=== PATIENT | female | born 1980 | race Caucasian/White ===

== ENCOUNTER 2017-01-06 17:15 | Emergency (ER) | payer SELFPAY ==
[2017-01-06 17:21] VITALS: BP 153/85
--- NOTE | 2017-01-06 17:31 | ER Document Report ---
ED Medical Screen (RME) - General Stated Complaint: FALL/RIGHT ANKLE PAIN, SWELLING Notes: 36 yo female c/o right ankle pain. fell down steps 2/. + swelling to right lateral malleolus TRAVEL OUTSIDE OF THE [place] IN LAST 30 DAYS: No - Related Data Allergies/Adverse Reactions: No Known Allergies Allergy (Verified 01/06/17 17:28) Past Medical History Pulmonary Medical History: Reports: Hx Asthma - as a child Past Surgical History: Reports: Hx Section, Hx Tubal Ligation - Immunizations Hx Diphtheria, Pertussis, Tetanus Vaccination: No Physical Exam - Vital signs Vitals: Temp Pulse Resp BP Pulse Ox 98.4 F 91 19 153/85 H 96 01/06/17 17:20 01/06/17 17:20 01/06/17 17:20 01/06/17 17:20 01/06/17 17:20 Course - Vital Signs Vital signs: Temp Pulse Resp BP Pulse Ox 98.4 F 91 19 153/85 H 96 01/06/17 17:20 01/06/17 17:20 01/06/17 17:20 01/06/17 17:20 01/06/17 17:20
[2017-01-06] MEDS ORDERED: PROMETHAZINE HCL 25 MG TABLET PO ONE (19:10)
[2017-01-06] MEDS ORDERED: OXYCODONE-ACETAMINOPHEN 5-325 MG TABLET PO ONE (19:10)
--- NOTE | 2017-01-06 19:29 | ER Document Report ---
ED Extremity Problem, Lower - General Chief Complaint: Knee Pain Stated Complaint: FALL/RIGHT ANKLE PAIN, SWELLING Notes: Patient was coming down steps Wednesday and rolled her right ankle on the last step causing an inversion of the ankle, now with severe pain, swelling, and inability to bear weight. Is using a single crutch to help her ambulate. TRAVEL OUTSIDE OF THE [place] IN LAST 30 DAYS: No - Related Data Allergies/Adverse Reactions: No Known Allergies Allergy (Verified 01/06/17 17:28) Past Medical History - Social History Smoking Status: Never Smoker Chew tobacco use (# tins/day): No Frequency of alcohol use: None Drug Abuse: None Family History: Reviewed & Not Pertinent Patient has suicidal ideation: No Patient has homicidal ideation: No Pulmonary Medical History: Reports: Hx Asthma - as a child Past Surgical History: Reports: Hx Section, Hx Tubal Ligation - Immunizations Hx Diphtheria, Pertussis, Tetanus Vaccination: No Review of Systems - Review of Systems Constitutional: denies: Chills, Diaphoresis, Fever Cardiovascular: denies: Chest pain Gastrointestinal: denies: Abdominal pain Musculoskeletal: denies: Back pain Physical Exam - Vital signs Vitals: Temp Pulse Resp BP Pulse Ox 98.4 F 91 19 153/85 H 96 01/06/17 17:20 01/06/17 17:20 01/06/17 17:20 01/06/17 17:20 01/06/17 17:20 Interpretation: Normal, Hypertensive - Minimal - Notes Notes: PHYSICAL EXAMINATION: GENERAL: Well-appearing, in no acute distress. 142 kg HEAD: Atraumatic, normocephalic. NECK: Normal range of motion, supple. LUNGS: Breath sounds clear and equal bilaterally. HEART: Regular rate and rhythm without murmurs. ABDOMEN: Soft, nontender. No guarding or rebound. BACK: No tenderness throughout entire back. EXTREMITIES: Significant soft tissue swelling of the lateral aspect of the right foot and ankle. Significant swelling around the distal fibula. There is ecchymosis subcutaneously in the lateral heel. Tenderness down the Achilles tendon although I think it's intact to its insertion on the calcaneus. Good pulses in the foot. Good capillary refill in the toes. All other extremities with normal range of motion without pain. NEUROLOGICAL: Normal speech. Normal sensory, motor, and reflex exams. Awake, alert, and oriented x3. Cranial nerves normal. PSYCH: Normal mood, normal affect. SKIN: Warm, dry, no rashes. Course - Vital Signs Vital signs: Temp Pulse Resp BP Pulse Ox 98.4 F 91 19 153/85 H 96 01/06/17 17:20 01/06/17 17:20 01/06/17 17:20 01/06/17 17:20 01/06/17 17:20 - Diagnostic Test Radiology results interpreted by me: 01/06/17 20:09 X-ray of the right ankle is normal. No fractures and no dislocations. Procedures - Immobilization Right Posterior Ankle Immobilizer type: Crutches, Posterior ankle Performed by: PCT Post-Proc Neuro Vasc Exam: Normal Alignment checked and good: Yes Discharge - Discharge Clinical Impression: Sprain of right ankle Qualifiers: Encounter type: initial encounter Involved ligament of ankle: tibiofibular ligament Qualified Code(s): S93.431A - Sprain of tibiofibular ligament of right ankle, initial encounter Condition: Stable Disposition: HOME, SELF-CARE Additional Instructions: SPRAIN: Your injury is a sprain. A sprain results from stretching or tearing of the ligaments, usually from a twisting injury. The ligaments will require time and protection in order to heal properly. Many sprains are quite disabling and should be taken seriously. The usual initial treatment of sprains is cold packs, elevation, and rest of the injured area. Your physician has assessed the seriousness of your ligament injury, and has outlined a treatment plan. Understand that this treatment may change, depending on how you progress. If a re-examination was recommended, it is important that you follow up as instructed. Call the doctor any time if there is severe pain, numbness, or loss of function in the injured area. SPRAINED ANKLE: Your sprained ankle results from stretching or tearing of the ligaments which support the ankle. This usually results from twisting the foot inward and under. The ligaments will require time and protection in order to heal properly. Many ankle sprains are quite disabling, and should be taken seriously. The usual treatment for an ankle sprain is cold packs; protection with tape , splints, or wraps; elevation; and staying off the ankle for at least a day. As the ankle improves, you can walk IF it's not painful to bear weight. Sports are best postponed until healing is complete. More serious sprains usually require strengthening exercises after early healing. Your physician has assessed the seriousness of the ligament injury to your ankle. However, the treatment may change, depending on how your ankle progresses. If further exams were recommended, it is important that you follow through. Call the doctor if your foot becomes numb, painful, or severely swollen. SPLINT PRECAUTIONS: A splint has been placed. This will protect the area while healing begins. Your problem does NOT normally require a cast. It MUST, however, be held still! Keep the splint on ALL THE TIME until instructed to remove it by the doctor. As you begin to use the area, be careful. You shouldn't do anything which causes discomfort -- you may disturb the injury even with the splint in place. After the initial period of rest and elevation, if splint does not prevent pain when you move, come back. You may require placement of a different splint , or a cast. If there is unexpected severe pain, or numbness, discoloration, or swelling beyond the splint, you should return at once. If you feel that the splint has broken or become loose, come back. ICE & ELEVATION: Apply ice packs frequently against the painful area. Many different schedules are recommended, such as "20 minutes on, 20 minutes off" or "one hour ice, two hours rest." If you need to work, you may need to go longer between ice treatments. You should plan to have the area ice packed AT LEAST one- fourth of the time. The ice should be applied over the wrap, tape, or splint, or over a layer of cloth -- not directly against the skin. Some ice bags have a built-in cloth and can be put directly on the skin. Your injured part should be elevated as much as possible over the next 48 hours. Try to keep the injury above the level of the heart. Avoid use of the injured area. Elevation and rest will decrease the swelling. ORAL NARCOTIC MEDICATION: You have been given a prescription for pain control. This medication is a narcotic. It's best taken with food, as nausea can result if taken on an empty stomach. Don't operate machinery or drive within six hours of taking this medication. Do not combine this medicine with alcohol, or with any medication which can cause sedation (such as cold tablets or sleeping pills) unless you get permission from the physician. Narcotics tend to cause constipation. If possible, drink plenty of fluids and eat a diet high in fiber and fruits. Antinausea Medication You have been given a medication to suppress nausea and vomiting. This type of medication can be given as a shot, pill, or suppository. It will usually last for many hours. Pills and shots usually last six to eight hours, suppositories last about 12 hours. For the typical illness, only one or two doses of the medication may be necessary. Mild lightheadedness may occur. This type of medicine can cause drowsiness. Do not drive or operate dangerous machinery while under its influence. Do not mix with alcohol. See your doctor at once if you have muscle spasms or tightness, or uncontrollable motions (particularly of the neck, mouth, or jaw). Persistent vomiting or severe lightheadedness should also be evaluated by the physician. Use your own crutches to help ambulate and not bear weight on the injured right ankle. FOLLOW-UP CARE: If you have been referred to a physician for follow-up care, call the physician s office for an appointment as you were instructed or within the next two days. If you experience worsening or a significant change in your symptoms, notify the physician immediately or return to the Emergency Department at any time for re-evaluation. I am providing you with the contact information for Dr. Salazar and his associates. Call their office tomorrow morning and see if they can see you in the next couple of days to reevaluate your ankle and to share a long-term treatment plan for your injury. Prescriptions: Oxycodone HCl/Acetaminophen [Percocet 5-325 mg Tablet] 1 - 2 tab PO Q4H PRN #30 tablet PRN Reason: Promethazine HCl [Phenergan 25 mg Tablet] 1 - 2 tab PO Q6H PRN #15 tablet PRN Reason: Forms: Return to Work Referrals: BINH SALAZAR MD [ACTIVE STAFF] - Follow up tomorrow
== END 2017-01-06 19:47 | disposition home or self-care (01) ==
LOC: ER 17:15
PROC: 2W3QX1Z Immobilization of Right Lower Leg using Splint (ICD-10-PCS; principal; 2017-01-06)
DX: S93.431A Sprain of tibiofibular ligament of right ankle, initial encounter (principal); W10.9XXA Fall (on) (from) unspecified stairs and steps, initial encounter; Z98.51 Tubal ligation status
CPT/HCPCS: 99283

== ENCOUNTER 2020-05-19 14:35 | Emergency (ER) | payer BC ==
[2020-05-19] MEDS ORDERED: NORMAL SALINE 1000 ML 1,000 ML IV PRN (15:21)
--- NOTE | 2020-05-19 15:22 | ER Document Report ---
ED Medical Screen (RME) - General Chief Complaint: Abscess Stated Complaint: ABSCESS/BUTTOCKS Time Seen by Provider: 05/19/20 15:20 Mode of Arrival: Ambulatory Notes: This is a 39-year-old female presents emergency room today stating that she has an abscess to the right medial aspect of her buttock she has had it for about 4 to 5 days is very red very inflamed she is unable to sit very painful when she stands she has had nausea vomiting and a low-grade fever. TRAVEL OUTSIDE OF THE [place] IN LAST 30 DAYS: No - Related Data Allergies/Adverse Reactions: No Known Allergies Allergy (Verified 05/19/20 15:16) Past Medical History - Social History Frequency of alcohol use: None Drug Abuse: None Pulmonary Medical History: Reports: Hx Asthma - as a child Renal/ Medical History: Denies: Hx Peritoneal Dialysis Past Surgical History: Reports: Hx Section, Hx Tubal Ligation - Immunizations Hx Diphtheria, Pertussis, Tetanus Vaccination: No Physical Exam - Vital signs Vitals: Temp Pulse Resp BP Pulse Ox 99.8 F 108 H 18 134/87 H 98 05/19/20 15:02 05/19/20 15:02 05/19/20 15:02 05/19/20 15:02 05/19/20 15:02 Course - Vital Signs Vital signs: Temp Pulse Resp BP Pulse Ox 99.8 F 108 H 18 134/87 H 98 05/19/20 15:16 05/19/20 15:02 05/19/20 15:02 05/19/20 15:02 05/19/20 15:02
[2020-05-19 15:46] LABS: ABSOLUTE BASOPHILS # (AUTO) 0.1 10^3/uL (0.0-0.2); ABSOLUTE EOSINOPHILS # (AUTO) 0.1 10^3/uL (0.0-0.6); ABSOLUTE LYMPHOCYTES (AUTO) 1.5 10^3/uL (0.5-4.7); ABSOLUTE MONOCYTES (AUTO) 1.2 10^3/uL (0.1-1.4); ABSOLUTE NEUT (AUTO) 14.3 10^3/uL (1.7-8.2); BASOPHILS % (AUTO) 0.6 % (0-2); EOSINOPHILS % (AUTO) 0.7 % (0-6); HEMOGLOBIN 14.3 g/dL (12.0-15.5); LYMPHOCYTES % (AUTO) 8.8 % (13-45); MEAN CORPUSCULAR HEMOGLOBIN 30.6 pg (27.0-33.4); MEAN CORPUSCULAR VOLUME 90 fl (80-97); MONOCYTES % (AUTO) 7.1 % (3-13); PLATELET COUNT 313 10^3/uL (150-450); RED BLOOD COUNT 4.66 10^6/uL (3.72-5.28); RED CELL DISTRIBUTION WIDTH 13.8 % (11.5-14.0); SEGMENTED NEUTROPHILS % (AUTO) 82.8 % (42-78); TOTAL CELLS COUNTED % (AUTO) 100 %; WHITE BLOOD COUNT 17.2 10^3/uL (4.0-10.5)
[2020-05-19 16:05] LABS: ALBUMIN 4.5 g/dL (3.5-5.0); ALKALINE PHOSPHATASE 97 U/L (38-126); ANION GAP 9 (5-19); ASPARTATE AMINO TRANSFERASE 28 U/L (14-36); BILIRUBIN,TOTAL 0.8 mg/dL (0.2-1.3); BLOOD UREA NITROGEN 9 mg/dL (7-20); CALCIUM 9.6 mg/dL (8.4-10.2); CARBON DIOXIDE 25 mmol/L (22-30); CHLORIDE 102 mmol/L (98-107); GLUCOSE 116 mg/dL (75-110); POTASSIUM 4.4 mmol/L (3.6-5.0); TOTAL PROTEIN 8.1 g/dL (6.3-8.2)
[2020-05-19] MEDS ORDERED: ONDANSETRON 4 MG TAB.RAPDIS PO ONE (16:12)
[2020-05-19] MEDS ORDERED: CEFTRIAXONE INJ 1000 MG VIAL IM ONE (16:12)
[2020-05-19] MEDS ORDERED: LIDOCAINE 1% INJ-PF (10 MG/ML) 30 ML SDV NEB ONE (16:12)
[2020-05-19] MEDS ORDERED: HYDROCODONE/ACETAMINOPHEN 10-325 MG TABLET PO ONE (16:12)
[2020-05-19] MEDS ORDERED: SULFAMETHOXAZOLE/TRIMETHOPRIM 800-160 MG TABLET PO ONE (16:12)
--- NOTE | 2020-05-19 16:18 | ER Document Report ---
ED General - General Chief Complaint: Abscess Stated Complaint: ABSCESS/BUTTOCKS Time Seen by Provider: 05/19/20 15:20 Mode of Arrival: Ambulatory Notes: Patient is a 39-year-old white female with no significant past medical history presents the emergency department chief complaint of red swollen tender area to the right buttock that began about 4 days ago. She states it started as a small pimple-like area and has gradually worsened. Yesterday she tried to "squeeze and poke it". She states after that the pain worsened. She states there is an area of redness around it that has been expanding. She denies any drainage from the wound except a little bit of blood after poking and squeezing. She denies prodding it with any instrumentation or device. Denies any fever, nausea, vomiting, diarrhea, chills or night sweats. States that she has had these in the past with a normally resolve on their own without any intervention or normally much smaller. TRAVEL OUTSIDE OF THE [place] IN LAST 30 DAYS: No - Related Data Allergies/Adverse Reactions: No Known Allergies Allergy (Verified 05/19/20 15:16) Past Medical History - Social History Smoking Status: Current Every Day Smoker Frequency of alcohol use: None Drug Abuse: None Family History: Reviewed & Not Pertinent Patient has homicidal ideation: No Pulmonary Medical History: Reports: Hx Asthma - as a child Renal/ Medical History: Denies: Hx Peritoneal Dialysis Past Surgical History: Reports: Hx Section, Hx Tubal Ligation - Immunizations Hx Diphtheria, Pertussis, Tetanus Vaccination: No Review of Systems - Review of Systems Constitutional: denies: Fever EENT: denies: Throat pain Cardiovascular: denies: Chest pain Respiratory: denies: Short of breath Gastrointestinal: denies: Abdominal pain Genitourinary: denies: Dysuria Female Genitourinary: denies: Irregular period Musculoskeletal: denies: Back pain Skin: Change in color Hematologic/Lymphatic: denies: Easy bleeding Neurological/Psychological: denies: Headaches Physical Exam - Vital signs Vitals: Temp Pulse Resp BP Pulse Ox 99.8 F 108 H 18 134/87 H 98 05/19/20 15:02 05/19/20 15:02 05/19/20 15:02 05/19/20 15:02 05/19/20 15:02 - General General appearance: Appears well, Alert In distress: None - Respiratory Respiratory status: No respiratory distress Chest status: Nontender Breath sounds: Normal Chest palpation: Normal - Cardiovascular Rhythm: Regular Heart sounds: Normal auscultation - Neurological Neuro grossly intact: Yes Cognition: Normal Orientation: AAOx4 - Psychological Associated symptoms: Normal affect, Normal mood - Skin Skin Color: Other - Cellulitis approximately 7 cm in diameter to the right buttock posteriorly, centrally located. Not involving the buttock cleft or not in the region of or involving any kimberli-anal or perirectal regions. Overlying area of induration approximately 3-1/2 cm in diameter. There is no fluctuance appreciated. No drainage. There is no proximal streaking. Area is tender to palpation. Chaperoned by female nurse. Course - Re-evaluation Re-evalutation: 05/19/20 16:15 Bedside ultrasound utilized showing cobblestoning of the area, consistent with cellulitis without evidence of pocket of drainable fluid. No evidence of abscess formation. Patient given a shot of Rocephin and oral Bactrim here. Given [place] for pain and Zofran prophylactically for nausea. She will be sent home on Bactrim, [place] and Zofran as needed. Counseled her regarding sitz baths. Discussed the importance of outpatient follow-up and 2 to 3 days for wound recheck and reevaluation. Advised that she return here or any ER immediately with any new, persistent or worsening symptoms. She verbalized understood and agreed. - Vital Signs Vital signs: Temp Pulse Resp BP Pulse Ox 99.8 F 108 H 18 134/87 H 98 05/19/20 15:16 05/19/20 15:02 05/19/20 15:02 05/19/20 15:02 05/19/20 15:02 - Laboratory Result Diagrams: 05/19/20 15:31 05/19/20 15:31 Laboratory results interpreted by me: 05/19/20 05/19/20 15:31 15:31 WBC 17.2 H Lymph % (Auto) 8.8 L Absolute Neuts (auto) 14.3 H Seg Neutrophils % 82.8 H Sodium 135.6 L Glucose 116 H Discharge - Discharge Clinical Impression: Cellulitis Qualifiers: Site of cellulitis: buttock Qualified Code(s): L03.317 - Cellulitis of buttock Condition: Stable Disposition: HOME, SELF-CARE Instructions: MRSA Cellulitis ([facility]), Trimethoprim-Sulfa ([facility]) Additional Instructions: Follow-up with your regular doctor in 2 to 3 days for reevaluation. Return here or any ER immediately with any new, persistent or worsening symptoms. Prescriptions: Sulfamethoxazole/Trimethoprim [Bactrim Ds Tablet] 1 each PO BID #19 tablet Hydrocodone/Acetaminophen [[place] 10-325 Tablet] 1 each PO Q6 PRN #12 tablet PRN Reason: Ondansetron [Zofran Odt 4 mg Tablet] 4 mg PO Q8 PRN #20 tab.rapdis PRN Reason:
[2020-05-19 17:32] VITALS: BP 133/85
== END 2020-05-19 17:31 | disposition home or self-care (01) ==
LOC: ER 14:35
DX: L03.317 Cellulitis of buttock (principal); F17.200 Nicotine dependence, unspecified, uncomplicated; J45.909 Unspecified asthma, uncomplicated
CPT/HCPCS: 99283; 96372; 36415; 87040; 85025; 80053; S0119; J3490; J0696

== ENCOUNTER 2020-05-21 15:17 | Emergency (ER) | payer BC ==
[2020-05-21 15:38] VITALS: BP 147/74
[2020-05-21] MEDS ORDERED: HYDROCODONE/ACETAMINOPHEN 5-325 MG TABLET PO ONE (15:54)
--- NOTE | 2020-05-21 15:59 | ER Document Report ---
ED Medical Screen (RME) - General Stated Complaint: ABSCESS RECHECK TRAVEL OUTSIDE OF THE [place] IN LAST 30 DAYS: No - HPI Notes: 05/21/20 15:55 39-year-old female presents emergency room for evaluation of an abscess to her right buttocks. Patient was seen in the emergency room 2 days ago for the same complaint, there was no fluid collection seen by that provider and the area of erythema was marked with a marker, she was given a gram of Rocephin and started on oral Bactrim. Today the area of erythema has extended approximately 4 to 5 cm outside of the marked area, patient states she is has worsening pain and is unable to sit on her bottom. Patient reports she is having some drainage from her abscess. reports she had a fever of 100.4 F and feels like she has chills. Denies any chest pain shortness of breath, nausea vomiting or diarrhea. Reports pain is 4 out of 5 I have greeted and performed a rapid initial assessment of this patient. A comprehensive ED assessment and evaluation of the patient, analysis of test results and completion of the medical decision making process will be conducted by additional ED providers. PHYSICAL EXAMINATION: GENERAL: Well-appearing, well-nourished and in mild distress CV: s1, s2 regular LUNGS: No respiratory distress Musculoskeletal: Normal range of motion NEUROLOGICAL: Normal speech, normal gait. SKIN: Warm, Dry, normal turgor, no rashes or lesions noted. Next with approximately 9 cm x 9 cm area of erythema, which extends probably 4 cm annular around the surgical marker palpitations. Noted purulent drainage from center of wound. No streaking noted - Related Data Allergies/Adverse Reactions: No Known Allergies Allergy (Verified 05/19/20 15:16) Past Medical History Pulmonary Medical History: Reports: Hx Asthma - as a child Renal/ Medical History: Denies: Hx Peritoneal Dialysis Past Surgical History: Reports: Hx Section, Hx Tubal Ligation - Immunizations Hx Diphtheria, Pertussis, Tetanus Vaccination: No Physical Exam - Vital signs Vitals: Temp Pulse Resp BP Pulse Ox 99.0 F 88 20 150/107 H 99 05/21/20 15:29 05/21/20 15:29 05/21/20 15:29 05/21/20 15:29 05/21/20 15:29 Course - Vital Signs Vital signs: Temp Pulse Resp BP Pulse Ox 99.0 F 94 18 147/74 H 97 05/21/20 15:35 05/21/20 15:35 05/21/20 15:35 05/21/20 15:35 05/21/20 15:35
[2020-05-21 16:27] LABS: ABSOLUTE EOSINOPHILS # (AUTO) 0.2 10^3/uL (0.0-0.6); ABSOLUTE LYMPHOCYTES (AUTO) 1.7 10^3/uL (0.5-4.7); ABSOLUTE MONOCYTES (AUTO) 0.9 10^3/uL (0.1-1.4); ABSOLUTE NEUT (AUTO) 9.6 10^3/uL (1.7-8.2); BASOPHILS % (AUTO) 0.4 % (0-2); EOSINOPHILS % (AUTO) 1.7 % (0-6); HEMATOCRIT 39.4 % (36.0-47.0); HEMOGLOBIN 13.3 g/dL (12.0-15.5); LYMPHOCYTES % (AUTO) 13.6 % (13-45); MEAN CORPUSCULAR HEMOGLOBIN 30.1 pg (27.0-33.4); MEAN CORPUSCULAR HGB CONC 33.8 g/dL (32.0-36.0); MEAN CORPUSCULAR VOLUME 89 fl (80-97); PLATELET COUNT 277 10^3/uL (150-450); RED BLOOD COUNT 4.42 10^6/uL (3.72-5.28); SEGMENTED NEUTROPHILS % (AUTO) 77.3 % (42-78); TOTAL CELLS COUNTED % (AUTO) 100 %; WHITE BLOOD COUNT 12.5 10^3/uL (4.0-10.5)
[2020-05-21 16:49] LABS: ALKALINE PHOSPHATASE 133 U/L (38-126); ANION GAP 9 (5-19); ASPARTATE AMINO TRANSFERASE 49 U/L (14-36); BILIRUBIN,DIRECT 0.1 mg/dL (0.0-0.4); BILIRUBIN,TOTAL 0.5 mg/dL (0.2-1.3); BLOOD UREA NITROGEN 14 mg/dL (7-20); CALCIUM 9.1 mg/dL (8.4-10.2); CARBON DIOXIDE 24 mmol/L (22-30); CHLORIDE 104 mmol/L (98-107); GLUCOSE 110 mg/dL (75-110); POTASSIUM 4.2 mmol/L (3.6-5.0); TOTAL PROTEIN 7.5 g/dL (6.3-8.2)
== END 2020-05-21 23:37 | disposition left against medical advice (07) ==
LOC: ER 15:17
DX: L02.31 Cutaneous abscess of buttock (principal); R50.9 Fever, unspecified; Z53.20 Procedure and treatment not carried out because of patient's decision for unspecified reasons
CPT/HCPCS: 36415; 80053; 83605; 85025; 99281

== ENCOUNTER 2020-05-22 08:16 | Emergency (ER) | payer BC ==
[2020-05-22 08:24] VITALS: BP 149/92
--- NOTE | 2020-05-22 11:11 | ER Document Report ---
ED General - General Chief Complaint: Abscess Stated Complaint: ABSCESS ON BUTTOCKS Time Seen by Provider: 05/22/20 10:22 Mode of Arrival: Ambulatory Information source: Patient TRAVEL OUTSIDE OF THE [place] IN LAST 30 DAYS: No - HPI Notes: Patient complains of right buttock pain. She states he has had this pain for approximately 5 to 6 days. It is severe and constant. Is worse with touch and better if left alone. It does radiate up into her right lower back. She was seen here several days ago who prescribed antibiotics however she states that the pain swelling is getting worse and that it started to drain. She states she has never had any other types of abscesses. No fevers. - Related Data Allergies/Adverse Reactions: No Known Allergies Allergy (Verified 05/22/20 09:05) Past Medical History - General Information source: Patient - Social History Smoking Status: Current Every Day Smoker Chew tobacco use (# tins/day): No Frequency of alcohol use: None Drug Abuse: None Family History: Reviewed & Not Pertinent Patient has homicidal ideation: No Pulmonary Medical History: Reports: Hx Asthma - as a child Renal/ Medical History: Denies: Hx Peritoneal Dialysis Past Surgical History: Reports: Hx Section, Hx Tubal Ligation - Immunizations Hx Diphtheria, Pertussis, Tetanus Vaccination: No Review of Systems - Review of Systems Constitutional: denies: Chills, Fever Cardiovascular: denies: Chest pain, Palpitations Respiratory: denies: Cough, Short of breath -: Yes All other systems reviewed and negative Physical Exam - Vital signs Vitals: Temp Pulse Resp BP Pulse Ox 98.4 F 97 18 149/92 H 97 05/22/20 08:22 05/22/20 08:22 05/22/20 08:22 05/22/20 08:22 05/22/20 08:22 Interpretation: Hypertensive - General General appearance: Appears well, Alert - HEENT Head: Normocephalic, Atraumatic Eyes: Normal Pupils: PERRL - Respiratory Respiratory status: No respiratory distress Chest status: Nontender Breath sounds: Normal Chest palpation: Normal - Cardiovascular Rhythm: Regular Heart sounds: Normal auscultation Murmur: No - Abdominal Inspection: Normal Distension: No distension Bowel sounds: Normal Tenderness: Nontender Organomegaly: No organomegaly - Back Back: Normal, Nontender - Extremities General upper extremity: Normal inspection, Nontender, Normal color, Normal ROM, Normal temperature General lower extremity: Normal inspection, Nontender, Normal color, Normal ROM, Normal temperature, Normal weight bearing. No: Kori's sign - Neurological Neuro grossly intact: Yes Cognition: Normal Orientation: AAOx4 [place] Coma Scale Eye Opening: Spontaneous [place] Coma Scale Verbal: Oriented [place] Coma Scale Motor: Obeys Commands [place] Coma Scale Total: 15 Speech: Normal Motor strength normal: LUE, RUE, LLE, RLE Sensory: Normal - Psychological Associated symptoms: Normal affect, Normal mood - Skin Skin Temperature: Warm Skin Moisture: Dry Skin Color: Other - Skin exam was unremarkable other than patient's right buttock. Right buttock has a large area of erythema and induration with some fluctuance at the center. It is tender to palpation. Is consistent with an abscess. It is currently draining some white-yellow pus. Course - Vital Signs Vital signs: Temp Pulse Resp BP Pulse Ox 98.4 F 97 18 149/92 H 97 05/22/20 08:22 05/22/20 08:22 05/22/20 08:22 05/22/20 08:22 05/22/20 08:22 Procedures - Incision and Drainage Right Buttock Time completed: 11:09 Type: Simple Anesthetic type: 1% Lidocaine mL's of anesthetic: 5 Blade size: 11 I&D procedure: Iodoform packing placed, Sterile dressing applied Incision Method: Incision made by scalpel Amount/type of drainage: 10cc's pus/blood Discharge - Discharge Clinical Impression: Abscess of buttock, right Condition: Stable Disposition: HOME, SELF-CARE Instructions: Abscess ([facility]), Post Incision and Drainage Additional Instructions: Please return in 2 days for reevaluation Prescriptions: Amoxicillin/Potassium Clav [Augmentin 875-125 Tablet] 1 tab PO BID 5 Days #10 tablet Forms: Return to Work
== END 2020-05-22 11:15 | disposition home or self-care (01) ==
LOC: ER 08:16
DX: L02.31 Cutaneous abscess of buttock (principal); F17.200 Nicotine dependence, unspecified, uncomplicated
CPT/HCPCS: 99282

== ENCOUNTER 2020-05-24 07:54 | Emergency (ER) | payer BC ==
[2020-05-24 09:43] VITALS: BP 128/72
--- NOTE | 2020-05-24 10:43 | ER Document Report ---
Entered by HUSAM AREVALO SCRIBE 05/24/20 0931 Acting as scribe for:JM LOPEZ MD ED Wound - General Chief Complaint: Wound Recheck Stated Complaint: WOUND RECHECK Time Seen by Provider: 05/24/20 09:05 Information source: Patient Notes: This 39 year old female patient presents to the emergency department today for a re-check of a right buttock abscess. Patient mentions that when she changed her dressed this morning she thinks she might have pulled out all of the packing as well. TRAVEL OUTSIDE OF THE [place] IN LAST 30 DAYS: No - Related Data Allergies/Adverse Reactions: No Known Allergies Allergy (Verified 05/22/20 09:05) Past Medical History - General Information source: Patient - Social History Smoking Status: Current Every Day Smoker Cigarette use (# per day): Yes Frequency of alcohol use: None Drug Abuse: None Lives with: Family Family History: Reviewed & Not Pertinent Pulmonary Medical History: Reports: Hx Asthma - as a child Past Surgical History: Reports: Hx Section, Hx Tubal Ligation - Immunizations Hx Diphtheria, Pertussis, Tetanus Vaccination: No Review of Systems - Review of Systems Constitutional: No symptoms reported EENT: No symptoms reported Cardiovascular: No symptoms reported Respiratory: No symptoms reported Gastrointestinal: No symptoms reported Genitourinary: No symptoms reported Female Genitourinary: No symptoms reported Musculoskeletal: No symptoms reported Skin: See HPI, Lesions Hematologic/Lymphatic: No symptoms reported Neurological/Psychological: No symptoms reported -: Yes All other systems reviewed and negative Physical Exam - Vital signs Vitals: Temp Pulse Resp BP Pulse Ox 97.8 F 75 20 148/76 H 100 05/24/20 07:59 05/24/20 07:59 05/24/20 07:59 05/24/20 07:59 05/24/20 07:59 - Notes Notes: Physical Exam: General: Alert, appears well. HEENT: Normocephalic. Atraumatic. PERRLA. Extraocular movements intact. Oropharynx clear. Neck: Supple. Respiratory: No respiratory distress. Abdominal: Normal Inspection. No distension. Extremities: Moves all four extremities. Neurological: Normal cognition. AAOx4. Normal speech. Psychological: Normal affect. Normal Mood. Skin: Right buttock has a large area of induration with a central small circular opening. This abscess was probed to furthest depth, and was re-probed multiple times with a q-tip dipped in peroxide. There was moderate purulent discharge expressed. Patient's boyfriend at bedside was also educated on this technique. Course - Vital Signs Vital signs: Temp Pulse Resp BP Pulse Ox 98.5 F 80 20 128/72 H 99 05/24/20 08:05 05/24/20 08:05 05/24/20 08:05 05/24/20 08:05 05/24/20 08:05 Discharge - Discharge Clinical Impression: Abscess of buttock, right Disposition: HOME, SELF-CARE Additional Instructions: Keep the abscess wound open using a Q-tip dipped in peroxide to probe the cavity. Do this several times daily over the next few days to allow the wound to heal from the inside out. RETURN TO THE EMERGENCY ROOM IF ANY NEW OR WORSENING SYMPTOMS. I personally performed the services described in the documentation, reviewed and edited the documentation which was dictated to the scribe in my presence, and it accurately records my words and actions.
== END 2020-05-24 09:50 | disposition home or self-care (01) ==
LOC: ER 07:54
DX: L02.31 Cutaneous abscess of buttock (principal); F17.210 Nicotine dependence, cigarettes, uncomplicated; J45.909 Unspecified asthma, uncomplicated
CPT/HCPCS: 87070; 87075; 87077; 87186; 87205; 99282